=== PATIENT | female | born 1935 | race Caucasian/White ===

== ENCOUNTER 2020-09-23 10:42 | Inpatient (IN) | payer MEDICARE ==
[~2020-09-23 10:42] MED LIST: ASPIRIN EC325 MG PO; COLACE 100MG C100 MG PO; CYANOCOBAL1000 MCG/1 INJ; CYCLOBENZAPRINE5 MG PO; DESYREL 50 MG T50 MG PO; GLIPIZIDE ER2.5 MG PO; HYDROCHLOROTH12.5 MG PO; IMDUR ER TAB 3030 MG PO; JANUVIA100 MG PO; LORTAB 5-325 M1 EACH PO; LORTAB 7.5-3251 EACH PO; LOVENOX SY40 MG/0.4 SQ; MAGNESIUM200 MG PO; METFORMIN HCL1000 MG PO; MOBIC15 MG PO; MONTELUKAST SOD10 MG PO; PERCOCET 5-3251 EACH PO; PROTONIX40 MG PO; TRESIBA FL100 UNIT/1 SQ; TUMS200 MG PO; TYLENOL 8 HOUR650 MG PO; XYZAL5 MG PO; ZANAFLEX2 MG PO; ZESTRIL10 MG PO; ZOCOR20 MG PO; ZOFRAN4 MG PO
[2020-09-23 11:38] LABS: HEMOGLOBIN 11.6 gm/dl (12.3-15.3); RED BLOOD COUNT 3.7 M/UL (4.00-5.10); WHITE BLOOD COUNT 9.9 K/UL (4.5-11.0)
[2020-09-23 12:06] LABS: BUN/CREATININE RATIO 19 (0-10)
[2020-09-23] MEDS ORDERED: NITROGLYCERIN0.4 MG SL (14:29)
[2020-09-23] MEDS ORDERED: GLUCOPHAGE1000 MG PO (21:06)
[2020-09-23] MEDS ORDERED: ADULT LOW DOSE81 MG PO (23:53)
[2020-09-24 04:40] LABS: HEMOGLOBIN 10.4 gm/dl (12.3-15.3); RED BLOOD COUNT 3.21 M/UL (4.00-5.10); WHITE BLOOD COUNT 11.5 K/UL (4.5-11.0)
[2020-09-25 05:57] LABS: RED BLOOD COUNT 3.11 M/UL (4.00-5.10)
[2020-09-26 05:15] LABS: HEMOGLOBIN 9.7 gm/dl (12.3-15.3); RED BLOOD COUNT 3.01 M/UL (4.00-5.10); WHITE BLOOD COUNT 9.3 K/UL (4.5-11.0)
[2020-09-27 07:00] LABS: HEMOGLOBIN 11.4 gm/dl (12.3-15.3)
[2020-09-27 07:01] LABS: RED BLOOD COUNT 3.67 M/UL (4.00-5.10); WHITE BLOOD COUNT 11.7 K/UL (4.5-11.0)
[2020-09-29 07:32] LABS: HEMOGLOBIN 13.2 gm/dl (12.3-15.3); WHITE BLOOD COUNT 10.8 K/UL (4.5-11.0)
[2020-09-29 07:35] LABS: RED BLOOD COUNT 4.29 M/UL (4.00-5.10)
[2020-09-30 03:36] LABS: WHITE BLOOD COUNT 8.1 K/UL (4.5-11.0)
[2020-09-30 03:38] LABS: HEMOGLOBIN 10.9 gm/dl (12.3-15.3); RED BLOOD COUNT 3.4 M/UL (4.00-5.10)
[2020-10-01 04:03] LABS: HEMOGLOBIN 10.2 gm/dl (12.3-15.3); RED BLOOD COUNT 3.19 M/UL (4.00-5.10); WHITE BLOOD COUNT 7.1 K/UL (4.5-11.0)
[2020-10-02 06:41] LABS: HEMOGLOBIN 10.1 gm/dl (12.3-15.3); RED BLOOD COUNT 3.13 M/UL (4.00-5.10); WHITE BLOOD COUNT 7.3 K/UL (4.5-11.0)
[2020-10-02] MEDS ORDERED: CENTRUM MU9 MG/15 ML PO (08:35)
[2020-10-02] MEDS ORDERED: MEGACE 400400 MG/10 PO (08:35)
== END 2020-10-02 14:09 | disposition home health service (06) | DRG 682 ==
LOC: ER1 10:42 → CDU 13:33 → M/S 13:33 → PROG CARE 17:56 → CCU 18:51 → M/S 09-26 19:28
PROVIDERS: Family Medicine; Physician Assistant Medical; Preventive Medicine Occupational Medicine; ADMIT Internal Medicine Infectious Disease
DX: N17.0 Acute kidney failure with tubular necrosis (principal); S06.5X9A Traumatic subdural hemorrhage with loss of consciousness of unspecified duration, initial encounter; E11.10 Type 2 diabetes mellitus with ketoacidosis without coma; G93.41 Metabolic encephalopathy; E87.2 Acidosis; E44.0 Moderate protein-calorie malnutrition; T68.XXXA Hypothermia, initial encounter; I25.10 Atherosclerotic heart disease of native coronary artery without angina pectoris; Z95.1 Presence of aortocoronary bypass graft; E11.9 Type 2 diabetes mellitus without complications; I35.0 Nonrheumatic aortic (valve) stenosis; I10 Essential (primary) hypertension; D69.6 Thrombocytopenia, unspecified; E78.5 Hyperlipidemia, unspecified; F32.9 Major depressive disorder, single episode, unspecified; J45.909 Unspecified asthma, uncomplicated; E87.6 Hypokalemia; E83.42 Hypomagnesemia; Z79.899 Other long term (current) drug therapy; Z79.82 Long term (current) use of aspirin; L89.152 Pressure ulcer of sacral region, stage 2; L89.621 Pressure ulcer of left heel, stage 1; L89.611 Pressure ulcer of right heel, stage 1
CPT/HCPCS: 36415; 36600; 51702; 70450; 71045; 80048; 80053; 80307; 81001; 82550; 82553; 82803; 82962; 83036; 83605; 83690; 83735; 83874; 83880; 84100; 84132; 84443; 84484; 85025; 85027; 85610; 85652; 85730; 86140; 87086; 87635; 90471; 92526; 92610; 96365; 96375; 97110-GP-CQ; 97116-GP-CQ; 97162; 97166; 99285; A6212; J0610; J1650; J3475; J3480; J7030

== ENCOUNTER 2020-10-02 17:38 | Emergency (ER) | payer MEDICARE ==
[~2020-10-02 17:38] MED LIST changes: +ADULT LOW DOSE81 MG PO; +CENTRUM MU9 MG/15 ML PO; +GLUCOPHAGE1000 MG PO; +MEGACE 400400 MG/10 PO; +NITROGLYCERIN0.4 MG SL
== END 2020-10-02 21:00 | disposition home or self-care (01) ==
LOC: ER1 17:38
DX: R53.1 Weakness (principal); I10 Essential (primary) hypertension; E11.9 Type 2 diabetes mellitus without complications; Z95.1 Presence of aortocoronary bypass graft
CPT/HCPCS: 93005; 99284

== ENCOUNTER 2021-02-14 13:18 | Observation (INO) | payer MEDICARE, MEDICAID ==
[~2021-02-14] VITALS: Ht 157.5 cm; Wt 47.8 kg
[2021-02-14 19:42] LABS: HEMOGLOBIN 8.7 gm/dl (12.3-15.3); RED BLOOD COUNT 2.86 M/UL (4.00-5.10); WHITE BLOOD COUNT 6.3 K/UL (4.5-11.0)
[2021-02-15 03:51] LABS: HEMOGLOBIN 9.4 gm/dl (12.3-15.3); RED BLOOD COUNT 3.09 M/UL (4.00-5.10); WHITE BLOOD COUNT 5.8 K/UL (4.5-11.0)
--- NOTE | 2021-02-15 17:13 | NUR ---
called and spoke with carrillo sanchez pt's maria e. i told her that i had spoke with the pt and the pt's pharmacy and there was medicines that did not match and the pt was not sure about the dosage or strength. carrillo stated that she was going down to water the pt's plants and she would get her list and call back with it tonroberto after [facility]
[2021-02-15] MEDS ORDERED: FERROUS SULFAT325 M2 PO (23:07)
[2021-02-15] MEDS ORDERED: ISOSORBIDE MONO30 MG PO (23:08)
[2021-02-15] MEDS ORDERED: METFORMIN HCL1000 MG PO (23:09)
[2021-02-15] MEDS ORDERED: CYANOCOBAL1000 MCG/1 INJ (23:11)
[2021-02-16] MEDS ORDERED: TRAMADOL HCL50 MG PO (11:09)
--- NOTE | 2021-02-16 13:26 | NUR ---
dairy frozen manager unable to arrange for patient to return home as she lives independently and is currently unable to ambulate unassisted. dairy frozen manager spoke with family and the patient and family states that patient will not have 24 hour care available and is therefore in no position to return home at this time. dairy frozen manager spoke with patient as well as Dr. Vieira and both were advised. Discharge will be held until a plan can be arranged for the patient.
[2021-02-18 04:57] LABS: HEMOGLOBIN 7.5 gm/dl (12.3-15.3); RED BLOOD COUNT 2.44 M/UL (4.00-5.10)
[2021-02-23 04:11] LABS: HEMOGLOBIN 7.6 gm/dl (12.3-15.3); RED BLOOD COUNT 2.46 M/UL (4.00-5.10); WHITE BLOOD COUNT 5.4 K/UL (4.5-11.0)
== END 2021-02-23 19:37 ==
LOC: ER1 13:18 → MED SURG 4 18:00 → CDU 18:00 → MED SURG 4 20:04
PROVIDERS: Family Medicine; ADMIT Internal Medicine
DX: R53.81 Other malaise (principal); M25.551 Pain in right hip; M25.461 Effusion, right knee; I12.9 Hypertensive chronic kidney disease with stage 1 through stage 4 chronic kidney disease, or unspecified chronic kidney disease; E11.22 Type 2 diabetes mellitus with diabetic chronic kidney disease; N18.9 Chronic kidney disease, unspecified; R53.1 Weakness; Z20.822 Contact with and (suspected) exposure to COVID-19; Z79.82 Long term (current) use of aspirin; Z79.84 Long term (current) use of oral hypoglycemic drugs; Z79.899 Other long term (current) drug therapy; Z96.641 Presence of right artificial hip joint; Z88.5 Allergy status to narcotic agent; W01.0XXA Fall on same level from slipping, tripping and stumbling without subsequent striking against object, initial encounter
CPT/HCPCS: 29530; 36415; 70450; 73502; 73552; 73564; 73590; 73610; 80048; 80053; 82550; 82553; 82962; 83036; 84484; 85025; 85027; 85610; 96372; 96374; 96375; 96376; 97110; 97110-GP-CQ; 97116; 97116-GP-CQ; 97162; 97165; 97530; 97530-GP-CQ; 99284; G0378; J1650; J2270; J7030; U0002